=== PATIENT | male | born 1985 | race Caucasian/White ===

== ENCOUNTER 2019-07-03 22:52 | Emergency (ER) | payer BC, SELFPAY ==
[~2019-07-03] VITALS: Ht 167.6 cm; Wt 77.3 kg
[2019-07-03 23:03] VITALS: BP 141/96
== END 2019-07-04 00:07 | disposition home or self-care (01) ==
LOC: M ED 22:52
DX: F10.129 Alcohol abuse with intoxication, unspecified (principal); M54.9 Dorsalgia, unspecified; F17.200 Nicotine dependence, unspecified, uncomplicated; F12.10 Cannabis abuse, uncomplicated